=== PATIENT | female | born 1945 | race Caucasian/White ===

== ENCOUNTER 2018-02-23 09:51 | Inpatient (IN) | payer BC, MEDICARE ==
[~2018-02-23] VITALS: Ht 160 cm; Wt 45.5 kg
[~2018-02-23 09:51] MED LIST: ACET-2247 PO; ALBO180CR TP; ASCO500 PO; CLOT15CR4 TP; DOXY100C PO; FERR-89 PO; IPRAHFA IH; MOME13HF IH; MUPI15CR12 TP; ONDA4 PO; PRED5 PO; PSYL1PAC3 PO; SODI473S21 TP; TRAM50TA4 PO; VITA100024 PO
[2018-02-23] MEDS ORDERED: RINGERS SOLUTION,LACTATED 1,000 ML IV ONE ×3 (09:54→13:41)
[2018-02-23] MEDS ORDERED: BACITRACIN 50,000 UNITS/VIAL ONE (11:33)
[2018-02-23] MEDS ORDERED: SODIUM CL IRRIG SOLN BAG 3,000 ML IRRIG ONE (11:33)
[2018-02-23] MEDS ORDERED: VANCOMYCIN HCL 1 GM/VIAL ONE (11:40)
[2018-02-23] MEDS ORDERED: PROPOFOL 1% 20 ML VIAL IVP ONE (12:00)
[2018-02-23] MEDS ORDERED: FentaNYL CITRATE-PF 100 MCG/2 ML VIAL IVP ONE (12:00)
[2018-02-23] MEDS ORDERED: MIDAZOLAM HCL 2 MG/2 ML VIAL IVP ONE (12:00)
[2018-02-23] MEDS ORDERED: ROCURONIUM BROMIDE 10 MG/ML 5 ML VIAL IVP ONE (12:00)
[2018-02-23] MEDS ORDERED: LIDOCAINE HCL/PF 2% 5 ML VIAL INJ ONE (12:00)
[2018-02-23] MEDS ORDERED: GELATIN SPONGE,ABSORBABLE 100 MM TP ONE (12:02)
[2018-02-23] MEDS ORDERED: THROMBIN, BOVINE 20000 UNITS/VIAL POWDER TP ONE (12:02)
[2018-02-23] MEDS ORDERED: METHYLENE BLUE 1% 10 ML VIAL ONE (12:02)
[2018-02-23] MEDS ORDERED: BUPIVACAINE LIPOSOME/PF 1.3%-13.3MG/ML SUSPENSION 20 ML VIAL INJ ONE (12:15)
[2018-02-23] MEDS ORDERED: FentaNYL CITRATE-PF 100 MCG/2 ML VIAL IVP PRN (13:15)
[2018-02-23] MEDS ORDERED: ONDANSETRON HCL 4 MG/2 ML VIAL IVP PRN (13:15)
[2018-02-23] MEDS ORDERED: MEPERIDINE HCL/PF 25 MG/0.5 ML AMP IVP PRN (13:15)
[2018-02-23] MEDS ORDERED: ACETAMINOPHEN 1000 MG/ISO-OSM 100 ML IV ONE ×2 (13:15→14:14)
[2018-02-23] MEDS ORDERED: HYDROmorphone 2 MG/ML SYRINGE ONE (14:07)
[2018-02-23] MEDS: HYDROmorphone 2 MG/ML SYRINGE IVP PRN ×5 (14:09→14:34)
[2018-02-23] MEDS ORDERED: MEPERIDINE HCL/PF 25 MG/0.5 ML AMP ONE (14:28)
[2018-02-23] MEDS ORDERED: FentaNYL CITRATE-PF 100 MCG/2 ML VIAL ONE (14:28)
[2018-02-23] MEDS ORDERED: HYDROmorphone 2 MG/ML SYRINGE IVP PRN (14:30)
[2018-02-23] MEDS ORDERED: TraMADol HCL 50 MG TABLET PO PRN (14:30)
[2018-02-23] MEDS ORDERED: TraMADol HCL 50 MG TABLET PO SCH (14:30)
[2018-02-23] MEDS ORDERED: HYDROmorphone 2 MG/ML SYRINGE IVP SCH (14:30)
[2018-02-23 16:01] VITALS: BP 120/53
[2018-02-23 19:20] VITALS: BP 108/63
[2018-02-23] MEDS ORDERED: SODIUM CHLORIDE 0.9% 500 ML IV ONE (19:54)
[2018-02-23] MEDS ORDERED: VANCOMYCIN HCL 1 GM/D5% WATER 200 ML IV SCH (20:00)
[2018-02-23 23:40] VITALS: BP 144/55
[2018-02-24] MEDS ORDERED: ZOLPIDEM TARTRATE 5 MG TABLET PO PRN
[2018-02-24] MEDS ORDERED: MAGNESIUM HYDROXIDE SUSPENSION 30 ML UDCUP PO PRN
[2018-02-24] MEDS ORDERED: ONDANSETRON HCL 4 MG/2 ML VIAL IVP PRN
[2018-02-24] MEDS ORDERED: [UNRECOGNIZED DRUG - OTHER] IH SCH
[2018-02-24] MEDS ORDERED: IPRATROPIUM BROMIDE HFA 17 MCG/PUFF 12.9 GM INHALER IH PRN
[2018-02-24] MEDS ORDERED: ONDANSETRON HCL 4 MG TABLET PO PRN
[2018-02-24] MEDS ORDERED: ACETAMINOPHEN 325 MG TABLET PO PRN
[2018-02-24] MEDS: HYDROCODONE/ACETAMINOPHEN 5-325 MG TABLET PO PRN ×2 (01:59→08:58)
[2018-02-24] MEDS: HEPARIN SODIUM,PORCINE 5,000 UNITS/ML VIAL SQ SCH ×4 (01:59→23:24)
[2018-02-24] MEDS: MORPHINE SULFATE 4 MG/ML SYRINGE IVP PRN ×3 (02:22→11:56)
[2018-02-24 05:15] VITALS: BP 126/64
[2018-02-24 07:27] LABS: ANION GAP 3 mmol/L (8-16); CALCIUM, TOTAL 7.9 mg/dL (8.8-10.5); CARBON DIOXIDE 34 mmol/L (22-29); CHLORIDE 97 mmol/L (98-107); CREATININE 0.55 mg/dL (0.60-1.30); GLOMERULAR FILTR. RATE CALC > 60 mL/min (>60); GLUCOSE,RANDOM 87 mg/dL (70-110); POTASSIUM 4.2 mmol/L (3.5-5.1); SODIUM SERUM 134 mmol/L (136-145); UREA NITROGEN, BLOOD 17 mg/dL (7-18)
[2018-02-24 08:00] VITALS: BP 134/61
[2018-02-24] MEDS: ASCORBIC ACID 500 MG TABLET PO SCH ×2 (08:58→19:53)
[2018-02-24] MEDS: DOCUSATE SODIUM 100 MG CAPSULE PO SCH ×2 (08:58→19:53)
[2018-02-24] MEDS: PANTOPRAZOLE SODIUM 40 MG DR TABLET PO SCH (08:58)
[2018-02-24] MEDS: FERROUS SULFATE 325 MG EC TABLET PO SCH ×2 (08:58→18:22)
[2018-02-24] MEDS: VITAMIN A 10,000 UNIT CAPSULE PO SCH (08:59)
[2018-02-24] MEDS: PSYLLIUM SEED ORANGE SF 5.8 GM/PACKET PO SCH ×2 (08:59→19:53)
[2018-02-24] MEDS: VANCOMYCIN HCL 750 MG in DEXTROSE 5%-WATER 250 ML IV SCH ×2 (09:42→19:53)
[2018-02-24 11:37] VITALS: BP 129/62
[2018-02-24] MEDS: PredniSONE 5 MG TABLET PO SCH (12:20)
[2018-02-24] MEDS: OxyCODONE HCL 10 MG ER TABLET PO SCH ×2 (14:05→19:53)
[2018-02-24] MEDS: MORPHINE SULFATE 2 MG/ML SYRINGE IVP PRN ×2 (14:05→18:22)
[2018-02-24] MEDS: MULTIVITAMINS WITH MINERALS, THERAPEUTIC TABLET PO SCH (14:05)
[2018-02-24] MEDS: ZINC SULFATE 220 MG CAPSULE PO SCH (14:05)
[2018-02-24 16:31] VITALS: BP 133/53
[2018-02-24 20:06] VITALS: BP 128/67
[2018-02-24] MEDS ORDERED: SODIUM CHLORIDE 0.9% 500 ML IV ONE (21:09)
[2018-02-24 23:17] VITALS: BP 112/57
[2018-02-25] VITALS (7 sets, daily range): BP systolic 110–139; BP diastolic 56–78
[2018-02-25] MEDS: MORPHINE SULFATE 2 MG/ML SYRINGE IVP PRN (05:23)
[2018-02-25 06:39] LABS: ANION GAP 1 mmol/L (8-16); CARBON DIOXIDE 32 mmol/L (22-29); CHLORIDE 95 mmol/L (98-107); CREATININE 0.59 mg/dL (0.60-1.30); GLOMERULAR FILTR. RATE CALC > 60 mL/min (>60); GLUCOSE,RANDOM 92 mg/dL (70-110); POTASSIUM 3.9 mmol/L (3.5-5.1); SODIUM SERUM 128 mmol/L (136-145); UREA NITROGEN, BLOOD 14 mg/dL (7-18); VANCOMYCIN,RANDOM 18.4 mcg/mL (25.0-50.0)
[2018-02-25 06:41] LABS: MEAN CORPUSCULAR HEMOGLOBIN 28.7 pg (26.0-34.0)
[2018-02-25 07:27] LABS: BASOPHILS % (AUTO) 0.9 % (0.0-2.0); EOSINOPHILS % (AUTO) 0.4 % (1.0-6.0); HEMATOCRIT 22.3 % (36-46); HEMOGLOBIN 7.5 g/dL (12.0-16.0); LYMPHOCYTES # (AUTO) 2.1 K/uL (1.0-4.8); LYMPHOCYTES % (AUTO) 18.4 % (22.0-44.0); MEAN CORPUSCULAR HGB CONC 33.7 G/dL (31.0-37.0); MEAN CORPUSCULAR VOLUME 85 fL (80-100); MONOCYTES # (AUTO) 1.5 K/uL (0.1-1.0); MONOCYTES % (AUTO) 12.9 % (2.0-9.0); NEUTROPHILS # (AUTO) 7.9 K/uL (1.8-7.7); NEUTROPHILS % (AUTO) 67.4 % (40.0-70.0); PLATELET COUNT (AUTO) 124 K/uL (150-450); RED BLOOD CELL COUNT(AUTO) 2.62 MIL/uL (4.00-5.20)
[2018-02-25] MEDS: PSYLLIUM SEED ORANGE SF 5.8 GM/PACKET PO SCH ×2 (08:54→20:28)
[2018-02-25] MEDS: ASCORBIC ACID 500 MG TABLET PO SCH ×2 (08:55→20:28)
[2018-02-25] MEDS: DOCUSATE SODIUM 100 MG CAPSULE PO SCH ×2 (08:55→20:28)
[2018-02-25] MEDS: FERROUS SULFATE 325 MG EC TABLET PO SCH ×2 (08:55→18:23)
[2018-02-25] MEDS: VITAMIN A 10,000 UNIT CAPSULE PO SCH (08:55)
[2018-02-25] MEDS: ZINC SULFATE 220 MG CAPSULE PO SCH (08:55)
[2018-02-25] MEDS: PredniSONE 5 MG TABLET PO SCH (08:55)
[2018-02-25] MEDS: PANTOPRAZOLE SODIUM 40 MG DR TABLET PO SCH (08:55)
[2018-02-25] MEDS: HEPARIN SODIUM,PORCINE 5,000 UNITS/ML VIAL SQ SCH ×3 (08:56→23:40)
[2018-02-25] MEDS: MULTIVITAMINS WITH MINERALS, THERAPEUTIC TABLET PO SCH (08:56)
[2018-02-25] MEDS: OxyCODONE HCL 10 MG ER TABLET PO SCH ×2 (08:59→20:28)
[2018-02-25] MEDS: VANCOMYCIN HCL 750 MG in DEXTROSE 5%-WATER 250 ML IV SCH ×2 (09:00→20:28)
[2018-02-25] MEDS: HYDROCODONE/ACETAMINOPHEN 5-325 MG TABLET PO PRN ×2 (13:44→23:40)
[2018-02-26] VITALS (12 sets, daily range): BP systolic 111–131; BP diastolic 42–76
[2018-02-26] MEDS: HYDROCODONE/ACETAMINOPHEN 5-325 MG TABLET PO PRN ×2 (05:44→15:38)
[2018-02-26 05:57] LABS: BASOPHILS % (AUTO) 0.4 % (0.0-2.0); EOSINOPHILS % (AUTO) 0.5 % (1.0-6.0); HEMATOCRIT 21.4 % (36-46); HEMOGLOBIN 7.3 g/dL (12.0-16.0); LYMPHOCYTES # (AUTO) 1.8 K/uL (1.0-4.8); LYMPHOCYTES % (AUTO) 18.6 % (22.0-44.0); MEAN CORPUSCULAR HEMOGLOBIN 29.2 pg (26.0-34.0); MEAN CORPUSCULAR HGB CONC 34.1 G/dL (31.0-37.0); MEAN CORPUSCULAR VOLUME 86 fL (80-100); MONOCYTES # (AUTO) 1.4 K/uL (0.1-1.0); MONOCYTES % (AUTO) 14.7 % (2.0-9.0); NEUTROPHILS # (AUTO) 6.4 K/uL (1.8-7.7); NEUTROPHILS % (AUTO) 65.8 % (40.0-70.0); PLATELET COUNT (AUTO) 561 K/uL (150-450)
[2018-02-26 06:47] LABS: ANION GAP 1 mmol/L (8-16); CALCIUM, TOTAL 8.4 mg/dL (8.8-10.5); CARBON DIOXIDE 34 mmol/L (22-29); CHLORIDE 97 mmol/L (98-107); CREATININE 0.61 mg/dL (0.60-1.30); GLUCOSE,RANDOM 94 mg/dL (70-110); POTASSIUM 3.8 mmol/L (3.5-5.1); SODIUM SERUM 132 mmol/L (136-145); UREA NITROGEN, BLOOD 13 mg/dL (7-18)
[2018-02-26 06:48] LABS: GLOMERULAR FILTR. RATE CALC > 60 mL/min (>60)
[2018-02-26] MEDS: DOCUSATE SODIUM 100 MG CAPSULE PO SCH ×2 (08:04→20:48)
[2018-02-26] MEDS: ASCORBIC ACID 500 MG TABLET PO SCH ×2 (08:04→20:48)
[2018-02-26] MEDS: MULTIVITAMINS WITH MINERALS, THERAPEUTIC TABLET PO SCH (08:04)
[2018-02-26] MEDS: VANCOMYCIN HCL 750 MG in DEXTROSE 5%-WATER 250 ML IV SCH ×2 (08:04→20:49)
[2018-02-26] MEDS: PANTOPRAZOLE SODIUM 40 MG DR TABLET PO SCH (08:04)
[2018-02-26] MEDS: ZINC SULFATE 220 MG CAPSULE PO SCH (08:05)
[2018-02-26] MEDS: PSYLLIUM SEED ORANGE SF 5.8 GM/PACKET PO SCH ×2 (08:05→20:48)
[2018-02-26] MEDS: HEPARIN SODIUM,PORCINE 5,000 UNITS/ML VIAL SQ SCH ×3 (08:05→23:09)
[2018-02-26] MEDS: OxyCODONE HCL 10 MG ER TABLET PO SCH ×2 (08:05→20:48)
[2018-02-26] MEDS: FERROUS SULFATE 325 MG EC TABLET PO SCH ×2 (08:05→18:40)
[2018-02-26] MEDS: VITAMIN A 10,000 UNIT CAPSULE PO SCH (08:05)
[2018-02-26] MEDS: PredniSONE 5 MG TABLET PO SCH (08:06)
[2018-02-26] MEDS ORDERED: SODIUM CHLORIDE 0.9% 100 ML ONE (15:41)
[2018-02-27] MEDS: HYDROCODONE/ACETAMINOPHEN 5-325 MG TABLET PO PRN ×2 (00:19→06:54)
[2018-02-27 05:33] LABS: ANION GAP 3 mmol/L (8-16); CALCIUM, TOTAL 8.2 mg/dL (8.8-10.5); CARBON DIOXIDE 35 mmol/L (22-29); CHLORIDE 99 mmol/L (98-107); CREATININE 0.61 mg/dL (0.60-1.30); GLUCOSE,RANDOM 96 mg/dL (70-110); POTASSIUM 3.8 mmol/L (3.5-5.1); SODIUM SERUM 137 mmol/L (136-145); UREA NITROGEN, BLOOD 13 mg/dL (7-18)
[2018-02-27 05:36] LABS: BASOPHILS % (AUTO) 0.6 % (0.0-2.0); EOSINOPHILS % (AUTO) 0.3 % (1.0-6.0); HEMATOCRIT 26.2 % (36-46); HEMOGLOBIN 9.2 g/dL (12.0-16.0); LYMPHOCYTES # (AUTO) 1.4 K/uL (1.0-4.8); LYMPHOCYTES % (AUTO) 17.4 % (22.0-44.0); MEAN CORPUSCULAR HEMOGLOBIN 29.9 pg (26.0-34.0); MEAN CORPUSCULAR VOLUME 86 fL (80-100); MONOCYTES # (AUTO) 1.1 K/uL (0.1-1.0); MONOCYTES % (AUTO) 13.6 % (2.0-9.0); NEUTROPHILS # (AUTO) 5.5 K/uL (1.8-7.7); NEUTROPHILS % (AUTO) 68.1 % (40.0-70.0); PLATELET COUNT (AUTO) 603 K/uL (150-450); RED BLOOD CELL COUNT(AUTO) 3.06 MIL/uL (4.00-5.20); RED CELL DISTRIBUTION WIDTH 15.5 % (11.5-14.5)
[2018-02-27 05:50] LABS: GLOMERULAR FILTR. RATE CALC > 60 mL/min (>60)
[2018-02-27 05:54] VITALS: BP 139/75
[2018-02-27] MEDS: BISACODYL 10 MG RECTAL RECTAL SUPPOSITORY PR PRN ×2 (06:22→12:29)
[2018-02-27 07:32] VITALS: BP 138/75
[2018-02-27] MEDS: PANTOPRAZOLE SODIUM 40 MG DR TABLET PO SCH (08:22)
[2018-02-27] MEDS: OxyCODONE HCL 10 MG ER TABLET PO SCH (08:22)
[2018-02-27] MEDS: DOCUSATE SODIUM 100 MG CAPSULE PO SCH (08:22)
[2018-02-27] MEDS: ZINC SULFATE 220 MG CAPSULE PO SCH (08:22)
[2018-02-27] MEDS: VANCOMYCIN HCL 750 MG in DEXTROSE 5%-WATER 250 ML IV SCH ×2 (08:22→18:49)
[2018-02-27] MEDS: ASCORBIC ACID 500 MG TABLET PO SCH (08:22)
[2018-02-27] MEDS: FERROUS SULFATE 325 MG EC TABLET PO SCH ×2 (08:22→17:05)
[2018-02-27] MEDS: VITAMIN A 10,000 UNIT CAPSULE PO SCH (08:22)
[2018-02-27] MEDS: PSYLLIUM SEED ORANGE SF 5.8 GM/PACKET PO SCH (08:23)
[2018-02-27] MEDS: MULTIVITAMINS WITH MINERALS, THERAPEUTIC TABLET PO SCH (08:23)
[2018-02-27] MEDS: HEPARIN SODIUM,PORCINE 5,000 UNITS/ML VIAL SQ SCH ×2 (08:23→16:36)
[2018-02-27] MEDS: PredniSONE 5 MG TABLET PO SCH (08:30)
[2018-02-27 11:53] VITALS: BP 141/73
[2018-02-27 15:22] VITALS: BP 128/71
[2018-02-27] MEDS ORDERED: ASCO500 PO ×3 (21:32→21:47)
[2018-02-27] MEDS ORDERED: DOCU60SY6 PO (21:35)
[2018-02-27] MEDS ORDERED: FERR-89 PO (21:36)
[2018-02-27] MEDS ORDERED: HEPA500041 SQ (21:38)
[2018-02-27] MEDS ORDERED: MULT-1112 PO (21:39)
[2018-02-27] MEDS ORDERED: OXYC10TA89 PO (21:40)
[2018-02-27] MEDS ORDERED: PANT40TA25 PO (21:41)
[2018-02-27] MEDS ORDERED: DSS100 PO (21:49)
[2018-02-28] MEDS ORDERED: HYDR-309 PO (07:20)
[2018-02-28] MEDS ORDERED: MOM30 PO (07:20)
[2018-02-28] MEDS ORDERED: ZOLP5 PO (07:20)
[2018-02-28] MEDS ORDERED: BISA5TAB12 PO (07:20)
[2018-02-28] MEDS ORDERED: MORP2CAR IV (07:20)
[2018-02-28] MEDS ORDERED: VANC750P10 IVPB (07:20)
[2018-02-28] MEDS ORDERED: ZINC220 PO (07:20)
== END 2018-02-27 21:58 | DRG 477 ==
LOC: SURGERY 09:51 → 6N 09:52
PROVIDERS: ADMIT Surgery Plastic and Reconstructive Surgery; ATTEND Surgery Plastic and Reconstructive Surgery
PROC: 0QBS0ZX Excision of Coccyx, Open Approach, Diagnostic (ICD-10-PCS; 2018-02-23)
PROC: 0QB10ZX Excision of Sacrum, Open Approach, Diagnostic (ICD-10-PCS; 2018-02-23)
PROC: 0QBS0ZZ Excision of Coccyx, Open Approach (ICD-10-PCS; 2018-02-23)
PROC: 0KXP0ZZ Transfer Left Hip Muscle, Open Approach (ICD-10-PCS; 2018-02-23)
PROC: 0KXN0ZZ Transfer Right Hip Muscle, Open Approach (ICD-10-PCS; 2018-02-23)
PROC: 0QB10ZZ Excision of Sacrum, Open Approach (ICD-10-PCS; principal; 2018-02-23 12:00)
PROC: 30233N1 Transfusion of Nonautologous Red Blood Cells into Peripheral Vein, Percutaneous Approach (ICD-10-PCS; 2018-02-26)
DX: M46.28 Osteomyelitis of vertebra, sacral and sacrococcygeal region (principal); L89.154 Pressure ulcer of sacral region, stage 4; E46 Unspecified protein-calorie malnutrition; Z68.1 Body mass index [BMI] 19.9 or less, adult; R13.10 Dysphagia, unspecified; J44.9 Chronic obstructive pulmonary disease, unspecified; Z93.1 Gastrostomy status; Z88.2 Allergy status to sulfonamides; Z79.891 Long term (current) use of opiate analgesic; Z79.2 Long term (current) use of antibiotics; Z79.899 Other long term (current) drug therapy
CPT/HCPCS: 86850; 86900; 86901; 86920; 87070; 87081; 87205; 88300; 88304; 88307; 88311; 92526; 92610; 93005; C9290; J0131; J1170; J1644; J2250; J2270; J2405; J2704; J3010; J3370; J3490; J7040; J7050; J7060; J7120; P9016; Q9968